=== PATIENT | male | born 1970 | race Asian ===

== ENCOUNTER 2017-05-06 17:34 | Inpatient (IN) | payer MEDICAID ==
[~2017-05-06] VITALS: Ht 185.4 cm; Wt 94.3 kg
[2017-05-06 17:45] VITALS: BP 135/101
[2017-05-06] MEDS ORDERED: Nitroglycerin Subl 0.4mg tab SL PRN (18:00)
[2017-05-06] MEDS ORDERED: Sodium Chloride 500ML 500 ML IV ONE (18:00)
[2017-05-06 18:10] LABS: EOSINOPHILS % (AUTO) 0.7 % (0.0-3.0); LYMPHOCYTES % (AUTO) 31.6 % (20.0-45.0); MEAN CORPUSCULAR HEMOGLOBIN 31.3 PG (27.0-31.0); MEAN CORPUSCULAR HGB CONC 31.7 G/DL (32.0-36.0); MEAN CORPUSCULAR VOLUME 99 FL (80-99); MEAN PLATELET VOLUME 7.2 FL (6.5-10.1); MONOCYTES % (AUTO) 7.1 % (1.0-10.0); NEUTROPHILS % (AUTO) 59.6 % (45.0-75.0); PLATELET COUNT 139 K/UL (150-450); RED CELL DISTRIBUTION WIDTH 12.1 % (11.6-14.8); WHITE BLOOD COUNT 6.9 K/UL (4.8-10.8)
[2017-05-06] MEDS ORDERED: AMLODIPINE BESYL5 MG ORAL (18:42)
[2017-05-06] MEDS ORDERED: METOPROLOL SUCC25 MG ORAL (18:42)
--- NOTE | 2017-05-06 19:07 | Emergency Room Report ---
History of Present Illness General Chief Complaint: Chest Pain Source: Patient Present Illness HPI 46-year-old male presents ED complaining of chest pain. States chest pain started this morning. Pressure-like, 5/10, nonradiating. Denies shortness of breath. Notes history of hypertension states he is compliant with his medications. Denies smoking or drug use. No other aggravating relieving factors. Denies any other associated symptoms Allergies: Coded Allergies: No Known Allergies (Unverified , 05/06/17) Patient History Past Medical History: HTN Past Surgical History: none Pertinent Family History: none Social History: Denies: smoking, alcohol use, drug use Immunizations: UTD Reviewed Nursing Documentation: PMH: Agreed, PSxH: Agreed Nursing Documentation-PMH Past Medical History: No History, Except For Hx Hypertension: Yes Review of Systems All Other Systems: negative except mentioned in HPI Physical Exam Vital Signs Date Time Temp Pulse Resp B/P (MAP) Pulse Ox O2 Delivery O2 Flow Rate FiO2 05/06/17 17:41 98.1 81 12 135/101 99 Room Air Sp02 EP Interpretation: reviewed, normal General Appearance: no apparent distress, alert, GCS 15, non-toxic Head: normocephalic, atraumatic Eyes: bilateral eye normal inspection, bilateral eye PERRL ENT: hearing grossly normal, normal pharynx, no angioedema, normal voice Neck: full range of motion, supple/symm/no masses Respiratory: chest non-tender, lungs clear, normal breath sounds, speaking full sentences Cardiovascular #1: regular rate, rhythm, no edema Cardiovascular #2: 2+ carotid (R), 2+ carotid (L), 2+ radial (R), 2+ radial (L) , 2+ dorsalis pedis (R), 2+ dorsalis pedis (L) Gastrointestinal: normal bowel sounds, non tender, soft, non-distended, no guarding, no rebound Rectal: deferred Genitourinary: normal inspection, no CVA tenderness Musculoskeletal: back normal, gait/station normal, normal range of motion, non- tender Neurologic: alert, oriented x3, responsive, motor strength/tone normal, sensory intact, speech normal Psychiatric: judgement/insight normal, memory normal, mood/affect normal, no suicidal/homicidal ideation Reflexes: 3+ bicep (R), 3+ bicep (L), 3+ tricep (R), 3+ tricep (L), 3+ knee (R) , 3+ knee (L) Skin: normal color, no rash, warm/dry, well hydrated Lymphatic: no adenopathy Medical Decision Making Diagnostic Impression: Primary Impression: ACS (acute coronary syndrome) ER Course Hospital Course 46-year-old male presents ED complaining of chest pain, BP high Differential diagnoses include: NE/unstable angina, contusion, muscle strain, PTX, rib fracture Clinical course Patient placed on stretcher. on athletic monitor. After initial history and physical I ordered labs, EKG, chest x-ray, NTG x 3 labs reviewed- no leukocytosis, hb/hct stable, electrolytes ok, trop negative EKG - NSR< no acute ischemic changes intepreted by me Chest x-ray- unremarkable Chest pain improved with nitroglycerin. Given aspirin. Case discussed with Dr. Taylor and he agreed to accept the patient to his service for further care and support I. I feel this is a highly complex case requiring extensive working including EKG/Rhythm strip, Xray/CT/US, Blood/urine lab work, repeat exams while in ED, and administration of strong opiates/narcotics for pain control, admission to hospital or close patient follow up. Diagnosis - ACS admitted to telemetry in serious condition Labs Test 05/06/17 18:00 White Blood Count 6.9 K/UL (4.8-10.8) Red Blood Count 5.30 M/UL (4.70-6.10) Hemoglobin 16.6 G/DL (14.2-18.0) Hematocrit 52.3 % (42.0-52.0) Mean Corpuscular Volume 99 FL (80-99) Mean Corpuscular Hemoglobin 31.3 PG (27.0-31.0) Mean Corpuscular Hemoglobin Concent 31.7 G/DL (32.0-36.0) Red Cell Distribution Width 12.1 % (11.6-14.8) Platelet Count 139 K/UL (150-450) Mean Platelet Volume 7.2 FL (6.5-10.1) Neutrophils (%) (Auto) 59.6 % (45.0-75.0) Lymphocytes (%) (Auto) 31.6 % (20.0-45.0) Monocytes (%) (Auto) 7.1 % (1.0-10.0) Eosinophils (%) (Auto) 0.7 % (0.0-3.0) Basophils (%) (Auto) 1.0 % (0.0-2.0) Sodium Level 141 MMOL/L (136-145) Potassium Level 3.4 MMOL/L (3.5-5.1) Chloride Level 107 MMOL/L (98-107) Carbon Dioxide Level 23 MMOL/L (21-32) Anion Gap 11 mmol/L (5-15) Blood Urea Nitrogen 10 mg/dL (7-18) Creatinine 1.0 MG/DL (0.55-1.30) Estimat Glomerular Filtration Rate > 60 mL/min (>60) Glucose Level 111 MG/DL (74-106) Calcium Level 9.3 MG/DL (8.5-10.1) Total Bilirubin 0.5 MG/DL (0.2-1.0) Aspartate Amino Transf (AST/SGOT) 47 U/L (15-37) Alanine Aminotransferase (ALT/SGPT) 51 U/L (12-78) Alkaline Phosphatase 125 U/L (46-116) Total Creatine Kinase 113 U/L (26-308) Creatine Kinase MB 0.5 NG/ML (0.0-3.6) Creatine Kinase MB Relative Index 0.4 Troponin I 0.000 ng/mL (0.000-0.056) Pro-B-Type Natriuretic Peptide 44 pg/mL (0-125) Total Protein 7.9 G/DL (6.4-8.2) Albumin 3.9 G/DL (3.4-5.0) Globulin 4.0 g/dL Albumin/Globulin Ratio 1.0 (1.0-2.7) EKG Diagnostic Results Rate: normal Rhythm: NSR ST Segments: no acute changes ASA given to the pt in ED: Yes Rhythm Strip Diag. Results EP Interpretation: yes Rhythm: NSR, no PVC's, no ectopy Chest X-Ray Diagnostic Results Chest X-Ray Diagnostic Results : Chest X-Ray Ordered: Yes # of Views/Limited/Complete: 1 View Indication: Chest Pain EP Interpretation: Yes Interpretation: no consolidation, no effusion, no pneumothorax, no acute cardiopulmonary disease Impression: No acute disease Electronically Signed by: Electronically signed by Max Fabian MD Last Vital Signs Date Time Temp Pulse Resp B/P (MAP) Pulse Ox O2 Delivery O2 Flow Rate FiO2 05/06/17 18:07 134/94 05/06/17 17:45 84 13 Room Air 05/06/17 17:45 99 05/06/17 17:41 98.1 Status: improved Disposition: ADMITTED INPATIENT Condition: Serious Referrals: NON PHYSICIAN (PCP) MAX FABIAN M.D. May 06, 2017 19:07
[2017-05-06 19:39] VITALS: BP 116/79
[2017-05-06 19:43] LABS: ALANINE AMINOTRANSFERASE 51 U/L (12-78); ANION GAP 11 mmol/L (5-15); ASPARTATE AMINO TRANSFERASE 47 U/L (15-37); CALCIUM 9.3 MG/DL (8.5-10.1); CARBON DIOXIDE 23 MMOL/L (21-32); CHLORIDE 107 MMOL/L (98-107); CKMB 0.5 NG/ML (0.0-3.6); GLOMERULAR FILTRATION RATE > 60 mL/min (>60); POTASSIUM 3.4 MMOL/L (3.5-5.1); SODIUM 141 MMOL/L (136-145); TOTAL PROTEIN 7.9 G/DL (6.4-8.2)
[2017-05-06 20:15] VITALS: BP 138/95
[2017-05-06 21:50] VITALS: BP 118/82
[2017-05-06] MEDS ORDERED: KCl 10% 20 mEq/15ml liquid ORAL ONE (22:30)
[2017-05-07] VITALS: BP 118/80
[2017-05-07 04:00] VITALS: BP 102/63
[2017-05-07 07:52] LABS: ALANINE AMINOTRANSFERASE 53 U/L (12-78); ALBUMIN/GLOBULIN RATIO 1.1 (1.0-2.7); ANION GAP 9 mmol/L (5-15); ASPARTATE AMINO TRANSFERASE 45 U/L (15-37); CARBON DIOXIDE 26 MMOL/L (21-32); CHLORIDE 110 MMOL/L (98-107); GLOMERULAR FILTRATION RATE > 60 mL/min (>60); MAGNESIUM 2.4 MG/DL (1.8-2.4); POTASSIUM 3.6 MMOL/L (3.5-5.1); SODIUM 145 MMOL/L (136-145); TOTAL PROTEIN 6.8 G/DL (6.4-8.2)
[2017-05-07 08:13] VITALS: BP 116/63
[2017-05-07] MEDS ORDERED: Metoprolol Succinate XL 25mg tab ORAL SCH (09:00)
[2017-05-07] MEDS ORDERED: Aspirin Baby 81mg ORAL SCH (09:00)
--- NOTE | 2017-05-07 11:27 | Diagnostic Imaging Report ---
Indication: Chest pain Comparison: None A single view chest radiograph was obtained. Findings: There is a smooth focus of pleural thickening in the lateral wall of the right hemithorax, nature which is not known. Comparison with previous studies would be helpful if possible. If this is not possible suggest followup and/or CT. Heart size is normal. Aorta is mildly ectatic. Bones are unremarkable. Impression: Focus of pleural thickening in the right side. Post inflammatory versus postsurgical/trauma. This requires inquiry with comparison studies or CT.
[2017-05-07 12:00] VITALS: BP 106/70
[2017-05-07] MEDS ORDERED: ASPIRIN81 M3 PO (16:13)
[2017-05-07] MEDS ORDERED: KCl 10% 20 mEq/15ml liquid ORAL ONE (16:15)
--- NOTE | 2017-05-07 19:00 | History and Physical Report ---
DATE OF ADMISSION: 05/06/2017 REASON FOR ADMISSION: Chest pain. HISTORY OF PRESENT ILLNESS: This is a 46-year-old male with no prior cardiovascular history. He has had several days of difficulty sleeping. This morning, he had chest pain. He had no associated symptoms. His blood pressure was elevated and he has had a history of borderline blood pressure problems in the past. MEDICATIONS: None. ALLERGIES: None. FAMILY HISTORY: Negative for premature coronary disease or stroke. REVIEW OF SYSTEMS: A 10-point review of systems performed, all systems negative. PHYSICAL EXAMINATION: VITAL SIGNS: In the ER, blood pressure was 135/101, heart rate 81, and respiratory rate 18. Today, 05/07/2017, blood pressure is 116/63, heart rate 63, and respiratory rate 20. HEENT: Conjunctivae pink. Oropharynx clear. NECK: Supple. Jugular venous pressure normal. LUNGS: Clear. CARDIAC: Regular. Normal S1 and S2 with no murmur. ABDOMEN: Soft and nontender. EXTREMITIES: No edema. LABORATORY AND DIAGNOSTIC DATA: Troponin negative. EKG, normal. Potassium on admission 3.4 and today 3.6 following replacement. IMPRESSION: 1. Episode of hypertension, since resolved. 2. Possible history of essential hypertension. 3. Hypokalemia, status post replacement therapy. 4. Chest pain episode with no clinical signs of acute coronary insufficiency presently. PLAN: 1. Outpatient followup. 2. Blood pressure monitoring. 3. Salt restriction. 4. Antiplatelet therapy with aspirin. 5. Advised to see primary care physician within the next week to evaluate fasting lipid panel. 6. Arrange outpatient stress test and continue monitoring of blood pressure. 7. The patient was advised to return here immediately or to closest ER, should he have recurring chest pain. Luis Taylor M.D. DR: MARIA C JOB#: [id number] CC:
--- NOTE | 2017-05-08 17:32 | Cardiology Report ---
APPROVED REPORT EKG Measurement Heart [id number] Normal sinus rhythm Normal ECG
--- NOTE | 2017-05-09 12:13 | Discharge Summary ---
Discharge Summary Hospital Course Date of Admission May 06, 2017 at 22:03 Date of Discharge May 07, 2017 at 16:47 Admitting Diagnosis acute coronary syndrome ARACELY Belle is a 46 year old male who was admitted on May 06, 2017 at 22 :03 for Acute Coronary Syndrome Hospital Course dc summary #[id number] Discharge Medications Continued Medications: Aspirin (Aspirin) 81 Mg Tab.chew 81 MG PO DAILY, TAB Discharge Condition Upon Discharge: stable Discharge Disposition Patient was discharged to Home () Discharge Diagnoses: Discharge Instructions Discharge Instructions Special Instructions I have been assigned to complete a D/C Summary on this account. I was not involved in the patient management Deepti Frank NP ([facility]) May 09, 2017 12:13
--- NOTE | 2017-05-10 05:00 | Discharge Summary 2 SIG ---
DATE OF ADMISSION: 05/06/2017 DATE OF DISCHARGE: 05/07/2017 REASON FOR ADMISSION: 46-year-old male with no prior cardiovascular history, presented to emergency department with chest pain without any associated symptoms. He denied shortness of breath, dizziness, and palpitations. No exertional pain. The patient reported several days of difficulty sleeping. In the emergency department, his blood pressure was elevate. Patient admitted to history of borderline blood pressure in the past. Troponin was negative. EKG revealed normal sinus rate with no acute ischemic changes. Potassium -3.4. Chest x-ray was unremarkable. Pro BNP - 44. The patient was admitted with chest pain, rule out acute coronary syndrome. HOSPITAL STAY: The patient was admitted to telemetry floor. Laundry Machine Operator closely followed. ECG/ Telemetry revealed no acute ischemic changes. Repeated troponin negative. Blood pressure was corrected and was stable. The patient was counseled on salt restriction and to continue monitor blood pressure at home. The patient was started on antiplatelet therapy with aspirin and advised to see the primary care physician within the next week to evaluate fasting lipid panel alog with blood pressure. The patient was recommended outpatient stress test and reminded to return immediately to closest ER if he should have recurrent chest pain. Potassium was replaced and was 3.6 after replacement. Chest pain was likely noncardiac. No cardiac history. Due to the rapid and unexpected improvement in the patient's condition, the patient was discharged in one day. FINAL DIAGNOSES: 1. Episode of hypertension, resolved. 2. Possible essential hypertension. 3. Hypokalemia, status post replacement. 4. Chest pain episode, atypical (no clinical signs of acute coronary insufficiency). DISCHARGE MEDICATIONS: See medication reconciliation list. DISCHARGE INSTRUCTIONS: The patient was discharged home. FOLLOWUP: Follow up with primary medical doctor next week to evaluate fasting lipid panel and blood pressure and schedule outpatient stress test. Luis Taylor M.D. I have been assigned to dictate discharge summary on this account and I was not involved in the patient's management. Deepti Frank ([facility] CenterAnthony N.PCesario DR: LIDIA JOB#: [id number] CC: CASSIUS
== END 2017-05-07 16:47 | disposition home or self-care (01) | DRG 203 ==
LOC: EMR 18:25 → EDBEDREQ 21:49 → 2E 22:03
DX: R07.89 Other chest pain (principal); I10 Essential (primary) hypertension; E87.6 Hypokalemia
CPT/HCPCS: 36415; 71010; 80053; 82550; 82553; 83735; 83880; 84484; 85025; 93005; 99285